=== PATIENT | male | born 1985 | race Caucasian/White ===

== ENCOUNTER 2021-04-17 08:22 | Day surgery (SDC) | payer MEDICAID ==
[~2021-04-17 08:22] MED LIST: Midazolam 1 MG/ML 2 ML SDV ONE; Propofol 200 MG/20 ML SDV ONE; fentaNYL 100 MCG/2 ML SDV ONE
[2021-04-17] MEDS ORDERED: Dextrose 5%-Lactated Ringers 1,000 ML IV SCH (09:00)
[2021-04-17] MEDS ORDERED: Glycopyrrolate 0.2 MG/ML 2 ML SDV IVPUSH ONE (09:15)
[2021-04-17] MEDS ORDERED: Propofol 200 MG/20 ML SDV ONE ×2 (10:17→10:26)
--- NOTE | 2021-04-22 12:47 | OR ---
DATE OF PROCEDURE: 04/17/2021 SURGEON: Leander Thompson MD PREOPERATIVE DIAGNOSES: 1. Probable gastroesophageal reflux disease. 2. Rectal bleeding. POSTOPERATIVE DIAGNOSES: 1. Upper endoscopy showing: a. Moderate-sized hiatal hernia with ulcerated gastroesophageal reflux disease. b. Mild antral gastritis. 2. Colonoscopy showing a sessile mass of sigmoid colon. OPERATIVE PROCEDURE: 1. Esophagogastroduodenoscopy with: a. Biopsy of esophagogastric junction for histologic evaluation. b. Biopsy of antrum for CLOtest. 2. Flexible colonoscopy with injection of submucosal Su ink adjacent to sigmoid colon mass. ANESTHESIA: IV sedation. INDICATIONS FOR PROCEDURE: This is a 36-year-old male presenting with worsening symptoms of gastroesophageal reflux disease. The patient presently has 20 mg of omeprazole daily. He also has had some episodes of rectal bleeding. This has been going on for several years rule out there being something other than hemorrhoids, the patient to undergo a flexible colonoscopy with biopsies and/or polypectomy as indicated. Potential risks of the procedure including bleeding and perforation were discussed, and the patient wishes to proceed. DETAILS OF PROCEDURE: The patient was taken to the operating room and placed in a left lateral decubitus position. IV sedation was administered after which the upper GI endoscope was passed orally through the length of the esophagus, into the stomach with retroflexion view of the fundus, thereafter through the pyloric channel and into the proximal duodenum. Findings included normal hypopharynx, larynx, upper esophageal sphincter, and esophageal body. At the EG junction, there was a moderate-sized hiatal hernia measuring around 3 cm. This was associated with some ulcerated gastroesophageal reflux disease with several linear ulcers extending upward. These were presently covered with fibrinous exudate. There was no stricturing at the esophagogastric junction. There was a loss of angulation of the esophagogastric junction related to the hiatal hernia. Within the stomach, there was some mild patchy redness within the antrum, otherwise the remainder of the stomach and duodenal exams were unremarkable. At this point, biopsy was obtained from the esophagogastric junction and sent for histologic evaluation and biopsy was obtained from the antrum and sent for CLOtest for H. pylori. Minimal bleeding from the biopsy sites was noted and the procedure then concluded. Attention was then taken to the colonoscopy. The initial digital rectal exam was performed and was unremarkable. The colonoscope was then passed into the rectum. Retroflexion did reveal some excoriated hemorrhoidal columns which may at some point been involved in some bleeding. The scope was eventually passed to the level of the cecum. The prep was quite good with only a small amount of liquid stool present. A striking finding was that of a quite large sessile mass. This was a polypoid mass which occupied between one-third and one-half of the segment of the sigmoid colon at around 25 cm from the dentate line. The scope was able to be passed around this area. The mass did appear to be fairly mobile in the area underlying musculature and this mass would either be consistent with a large adenomatous polyp of some subtype which was an area of possible in situ invasive carcinoma. Other than that, there were no additional abnormalities with the colon exam. No additional polyps or other sites of neoplasia were seen and there was no diverticular disease or colitis. At this point, it was felt that the mass would require formal resection. Given the large size, biopsies were not obtained as this would not effect the decision making as this would need to be resected with the intent to proceed with a cancer-type operation as the final histologic nature of the mass would only be fully elucidated upon its removal and examination of its entire substance. To help facilitate identification of this mass, 4 mL of Su ink was injected into the colonic submucosa adjacent to the mass and at that point no complication was noted. The scope was then withdrawn and the procedure then concluded. A lengthy discussion was held with the patient and following this. They would like to get through [place] and the plan will be to proceed with the segmental colorectal resection on May 02. From an oncologic standpoint, this amount of delay for this level of lesion would by all means not be problematic. Leander Thompson MD /[id number]
== END 2021-04-17 12:34 | disposition home or self-care (01) ==
LOC: JP.SDS 08:22
PROVIDERS: ATTEND Surgery
DX: K63.89 Other specified diseases of intestine (principal); K21.9 Gastro-esophageal reflux disease without esophagitis; K44.9 Diaphragmatic hernia without obstruction or gangrene; K29.60 Other gastritis without bleeding; K31.89 Other diseases of stomach and duodenum
CPT/HCPCS: 36415; 43239; 45381; 82378; 86850; 86900; 86901; 87081; 88305; J2250; J2704; J3010; J3490; J7121

== ENCOUNTER 2021-05-02 05:32 | Inpatient (IN) | payer MEDICAID ==
[2021-05-02] MEDS ORDERED: Dextrose 5%-Lactated Ringers 1,000 ML IV SCH ×2 (06:00→10:45)
[2021-05-02] MEDS ORDERED: Acetaminophen 500 MG Tab PO SCH (06:30)
[2021-05-02] MEDS ORDERED: Propofol 200 MG/20 ML SDV ONE (06:55)
[2021-05-02] MEDS ORDERED: Glycopyrrolate 0.2 MG/ML 5 ML MDV ONE (06:55)
[2021-05-02] MEDS ORDERED: Rocuronium 50 MG/5 ML Vial ONE (06:55)
[2021-05-02] MEDS ORDERED: fentaNYL 100 MCG/2 ML SDV ONE (06:55)
[2021-05-02] MEDS ORDERED: Succinylcholine 200 MG/10 ML MDV ONE (06:55)
[2021-05-02] MEDS ORDERED: Ondansetron 4 MG/2 ML SDV ONE (06:55)
[2021-05-02] MEDS ORDERED: Dexamethasone 4 MG/ML SDV ONE (06:55)
[2021-05-02] MEDS ORDERED: Sodium Chloride 0.9% 10 ML ONE (06:55)
[2021-05-02] MEDS ORDERED: Neostigmine Methylsulfate 1 MG/ML 5 ML Syringe ONE (06:55)
[2021-05-02] MEDS ORDERED: fentaNYL 250 MCG/5 ML SDV ONE ×2 (06:55→07:33)
[2021-05-02] MEDS ORDERED: cefOXitin 2 GM in Sodium Chloride 0.9% 50 ML IV ONE (07:00)
[2021-05-02] MEDS ORDERED: Ketamine 500 MG/5 ML MDV IV SCH (07:30)
[2021-05-02] MEDS ORDERED: Ketamine 25 MG in Sodium Chloride 0.9% 19.75 ML IV SCH (07:30)
[2021-05-02] MEDS ORDERED: Naloxone 0.4 MG/ML SDV IVPUSH PRN (08:00)
[2021-05-02] MEDS ORDERED: Meropenem 500 MG SDV IV ONE (08:40)
[2021-05-02] MEDS ORDERED: Meperidine PF 100 MG/ML Syringe IM PRN (10:41)
[2021-05-02] MEDS: fentaNYL 2,500 MCG in Sodium Chloride 0.9% 200 ML EPIDUR SCH (10:47)
[2021-05-02] MEDS ORDERED: diphenhydrAMINE 50 MG/ML SDV IVPUSH PRN (11:00)
[2021-05-02] MEDS ORDERED: hydrOXYzine HCL 100 MG/2 ML SDV IM PRN (11:00)
[2021-05-02] MEDS ORDERED: Ondansetron 4 MG/2 ML SDV IVPUSH PRN (11:00)
[2021-05-02] MEDS ORDERED: Naloxone 0.4 MG/ML SDV IV PRN (11:00)
[2021-05-02] MEDS: Dextrose 5%-Lactated Ringers 1,000 ML with Naloxone 0.4 MG IV SCH ×6 (11:16→23:48)
[2021-05-02] MEDS: Acetaminophen 500 MG Tab PO SCH ×3 (11:52→23:48)
[2021-05-02] MEDS ORDERED: Pantoprazole 40 MG Vial IVPUSH SCH (14:00)
[2021-05-02] MEDS: cefOXitin 2 GM in Sodium Chloride 0.9% 50 ML IV SCH ×2 (14:25→20:32)
[2021-05-02] MEDS: Enoxaparin 40 MG/0.4 ML Syringe SUBCUT SCH (14:25)
[2021-05-02] MEDS ORDERED: Lactated Ringers 500 ML IV ONE (15:00)
[2021-05-02] MEDS: Tamsulosin 0.4 MG Cap.ER PO SCH (20:34)
[2021-05-03] MEDS: cefOXitin 2 GM in Sodium Chloride 0.9% 50 ML IV SCH ×3 (02:34→14:17)
[2021-05-03] MEDS: fentaNYL 2,500 MCG in Sodium Chloride 0.9% 200 ML EPIDUR SCH (03:52)
[2021-05-03] MEDS: Acetaminophen 500 MG Tab PO SCH ×3 (05:47→17:13)
[2021-05-03] MEDS: Dextrose 5%-Lactated Ringers 1,000 ML with Naloxone 0.4 MG IV SCH ×6 (07:42→20:45)
--- NOTE | 2021-05-03 07:46 | PN ---
DATE OF SERVICE: 05/03/2021 SUBJECTIVE: Nav is postop day 1. He states his pain is controlled. He has an epidural and is taking Tylenol. Oral intake 3200. Urine output 2485 via Lopes catheter. COLIN drain put out 75 mL. He has been up walking using his incentive spirometer, has no questions or concerns. OBJECTIVE: GENERAL: Nav is a 36-year-old male. He is alert and orientated. VITAL SIGNS: TPR 98.6, 85, 18. Blood pressure 105/67. HEENT: Negative. NECK: Supple. HEART: Regular rate and rhythm. LUNGS: Clear. ABDOMEN: Dressing dry and intact. Abdominal binder is on. EXTREMITIES: Without peripheral edema. ASSESSMENT: Exploratory laparotomy with: 1. Rectosigmoid resection with coloproctostomy. 2. Small bowel resection. 3. Repair of incarcerated umbilical hernia. 4. Mobilization of omentum into pelvis. POSTOPERATIVE DIAGNOSES: 1. Cystocele, polypoid mass, distal sigmoid colon. 2. Segment of small bowel adherent to sigmoid colon. 3. Incarcerated umbilical hernia. 4. Date of procedure 05/02/2021. Surgeon: Leander Thompson MD. PLAN: 1. Schedule and have consent signed for delayed primary closure, IV local sedation with TAP block on 05/04/2021 at 0715 hours, n.p.o. after midnight. Surgeon: Leander Thompson MD. 2. Decrease IV to 100 mL per hour. 3. Regular diet. 4. Ibuprofen 600 mg q.6 hours p.o. scheduled. 5. Dulcolax 2 tabs b.i.d. p.o. scheduled. 6. Colace 100 mg p.o. b.i.d. scheduled. 7. Continue use of incentive spirometer and we will evaluate p.r.n. or in a.m. Sara Short PA-C /[id number]
[2021-05-03] MEDS: Bisacodyl 5 MG Tab PO SCH ×2 (09:09→20:35)
[2021-05-03] MEDS: Ibuprofen 600 MG Tab PO SCH ×3 (09:09→20:35)
[2021-05-03] MEDS: Docusate Sodium 100 MG Cap PO SCH ×2 (09:10→20:35)
[2021-05-03] MEDS: Citalopram 20 MG Tab PO SCH (09:10)
--- NOTE | 2021-05-03 12:46 | OR ---
DATE OF PROCEDURE: 05/02/2021 SURGEON: Leander Thompson MD PREOPERATIVE DIAGNOSIS: Sessile polypoid mass, distal sigmoid colon. POSTOPERATIVE DIAGNOSES: 1. Sessile polypoid mass, distal sigmoid colon. 2. Segment of small bowel adherent to sigmoid colon. 3. Incarcerated umbilical hernia. OPERATIVE PROCEDURES: 1. Exploratory laparotomy with: a. Rectosigmoid resection with coloproctostomy (57762). b. Small bowel resection (70422). c. Repair of incarcerated umbilical hernia (30592). d. Mobilization of omentum into pelvis (40873). ANESTHESIA: General plus epidural. SERVICE LINE COORDINATOR: Sara Short PA-C INDICATIONS FOR PROCEDURE: This is a 36-year-old male presenting with some ongoing rectal bleeding, and upon colonoscopy was noted to have a sessile mass within the distal sigmoid colon. The plan is to proceed with a rectosigmoid resection. This may either be malignant or premalignant, a standard cancer operation would be appropriate. Potential risks of procedure including bleeding, infection, leaks from GI tract, anastomosis potentially requiring a temporary colostomy as well as possibility of cardiopulmonary, septic, or hemorrhagic complications including were discussed, and that there is a possibility this is more advanced than suspected initially was gone over how he may need additional treatment postoperatively beyond surgery, and wishes to proceed. DETAILS OF PROCEDURE: The patient was taken to the operating room and after epidural catheter was placed and general endotracheal anesthetic was induced, the patient was placed in a lithotomy position. Lopes catheter was inserted and the abdomen and inguinal area was then prepped and draped. A midline incision from the umbilicus down to the pubis was made and carried down through the full-thickness abdominal wall. Upon entering the peritoneal cavity, it was noted that there was a point of small bowel which was adherent to the sigmoid colon into the mass. The area of mass was identified by preoperative Su ink marking and was easily palpable as well within the distal sigmoid colon. Otherwise, there is no significant lymphadenopathy noted, and there is no other evidence of any metastatic disease within peritoneal surfaces or elsewhere. At this point, the proximal sigmoid colon was divided with the MARY stapler. Peritoneal edges of the base of the sigmoid colon, mesentery, and onto the rectum were divided on each side subsequent dissection and division of the mesentery to those area. Once we got down to roughly the mid rectum divided with MARY purple stapler and specimen delivered from the field. Off the field, mass was confirmed to be within the area of the resection with satisfactory margins. Prior to removal, the small bowel was divided more or less flush with the sigmoid colon with the MARY stapler where it was adherent to that surface. This was done with MARY melodie and the anastomosis was initially needed. This was to a point just proximal to the ileocecal valve and internal firing of the 60 mm MARY stapler followed the transverse colon closure of the common opening. Angles anastomosed and mesenteric defect were approximated with some 3- 0 Vicryl stitch anastomosis reinforced with 4 mL of fibrin sealant. Attention was taken to the colorectal anastomosis. A small opening was made and divided the sigmoid colon and anvil, 28 mm EEA stapler passed into the lumen of the divided sigmoid colon, which was then re-stapled and the anvil was then brought out through the most dependent portion of the of the EEA staple line. Transrectally, the main body of EEA stapler was brought up to divide the rectum fired thus creating the coloproctostomy. Upon removal of the stapler, double donuts of mucosa were noted within it. The test was accomplished with a colonoscopy advancing up to the level of anastomosis which was seen to be intact with blood supply on each side antibiotic-containing saline solution. No bubbles or other signs of leaks were noted. The colorectal anastomosis was reinforced on its anterior 2/3 with 3-0 Vicryl seromuscular stitch and then with 6 mL of fibrin sealant. During the course of the resection, the patient was noted to have incarcerated umbilical hernia whose contents were excised with a small opening made in the umbilical skin. This was densely adherent to the hernia sac and that overhang was then closed with some 3-0 Vicryl skin stitch. Abdomen was then irrigated with antibiotic-containing saline solution once again. A Emanuel- Bolivar drain was taken out through the left lower abdomen, placed down into the pelvis adjacent to the coloproctostomy. Finally, the omentum was mobilized down into the pelvis we put a suture there, small bowel should the patient at any require any postoperative radiation treatment. The peritoneum from the linea semilunaris downward was then closed with #2 Vicryl stitch followed by edges of fascia being closed with #2 Vicryl stitch. The uppermost stitch closed the umbilical hernia, and the skin and subcutaneous tissue were then packed open for planned delayed primary closure in 48 hours to limit the chances of wound infection. There were no evident complications. The patient tolerated the procedure well. Physician cafeteria assistant, Sara Short, played an essential role in assisting in this case, helping to position the patient, retract structures as needed, as well as suturing and cutting sutures when indicated. Her presence improved patient's safety and decreased operative time. Leander Thompson MD /[id number]
[2021-05-03] MEDS: Enoxaparin 40 MG/0.4 ML Syringe SUBCUT SCH (14:17)
[2021-05-03] MEDS: Pantoprazole 40 MG Tab.CR PO SCH (17:13)
[2021-05-03] MEDS: Tamsulosin 0.4 MG Cap.ER PO SCH (20:36)
[2021-05-04] MEDS: fentaNYL 2,500 MCG in Sodium Chloride 0.9% 200 ML EPIDUR SCH ×2 (00:01→17:21)
[2021-05-04] MEDS: Acetaminophen 500 MG Tab PO SCH ×4 (00:03→17:20)
[2021-05-04] MEDS: Ibuprofen 600 MG Tab PO SCH ×4 (04:19→20:15)
[2021-05-04] MEDS: Dextrose 5%-Lactated Ringers 1,000 ML with Naloxone 0.4 MG IV SCH ×6 (05:25→14:21)
[2021-05-04] MEDS ORDERED: Meropenem 500 MG SDV ONE (06:39)
[2021-05-04] MEDS ORDERED: Lidocaine 1% with EPINEPHrine 1:100,000 50 ML MDV ONE (06:39)
[2021-05-04] MEDS ORDERED: Bupivacaine 0.5% 50 ML MDV ONE (06:39)
[2021-05-04] MEDS ORDERED: fentaNYL 100 MCG/2 ML SDV ONE (07:04)
[2021-05-04] MEDS ORDERED: Midazolam 1 MG/ML 2 ML SDV ONE (07:04)
[2021-05-04] MEDS ORDERED: Propofol 200 MG/20 ML SDV ONE ×2 (07:09→07:32)
[2021-05-04] MEDS: Citalopram 20 MG Tab PO SCH (09:24)
[2021-05-04] MEDS: Bisacodyl 5 MG Tab PO SCH ×2 (09:24→20:15)
[2021-05-04] MEDS: Docusate Sodium 100 MG Cap PO SCH ×2 (09:24→20:15)
--- NOTE | 2021-05-04 09:34 | OR ---
DATE OF PROCEDURE: 05/04/2021 SURGEON: Leander Thompson MD PREOPERATIVE DIAGNOSIS: Open abdominal incision. POSTOPERATIVE DIAGNOSIS: Open abdominal incision. OPERATIVE PROCEDURE: Delayed primary closure of open abdominal incision. ANESTHESIA: Local plus IV sedation. INDICATION FOR PROCEDURE: This is a 36-year-old status post a low anterior resection for a sessile polypoid tumor 2 days ago. At the time of the procedure, his skin and subcutaneous tissue were felt to be at high risk for wound infection and were therefore packed open for delayed primary closure today. Potential risks of the procedure including bleeding and infection were reviewed, and the patient wishes to proceed. DETAILS OF PROCEDURE: The patient was taken to the operating room and placed in a semi- sitting position. The operative dressing was taken down. He received some IV sedation. The wound appeared to be clean. Wound was then prepped and draped, anesthetized with 1% lidocaine mixed with Marcaine, and irrigated with meropenem-containing saline solution. This incision was closed with 2 layers of 3-0 and 4-0 Vicryl stitch deep and melodie for the skin. Bilateral transverse abdominis plane blocks were placed using ultrasound guidance. The patient tolerated the procedure well, was taken to the recovery room in satisfactory condition. Leander Thompson MD /[id number]
--- NOTE | 2021-05-04 11:54 | PN ---
DATE OF SERVICE: 05/04/2021 The patient has been afebrile with stable vital signs. Pain control was fairly good with epidural. He is passing some flatus. No bowel movement as of yet. I think we will leave the epidural and Lopes catheter in today. He will undergo delayed closure of abdominal incision and resume later a diet along with bowel stimulation. We will likely get the purulent Lopes catheter out tomorrow. Leander Thompson MD /[id number]
[2021-05-04] MEDS: Pantoprazole 40 MG Tab.CR PO SCH (16:20)
[2021-05-04] MEDS ORDERED: Dextrose 5%-Lactated Ringers 1,000 ML IV SCH (18:00)
[2021-05-04] MEDS: traMADol 50 MG Tab PO PRN (18:22)
[2021-05-04] MEDS: Tamsulosin 0.4 MG Cap.ER PO SCH (20:15)
[2021-05-05] MEDS: Acetaminophen 500 MG Tab PO SCH ×5 (00:17→23:12)
[2021-05-05] MEDS: traMADol 50 MG Tab PO PRN ×4 (00:20→23:12)
[2021-05-05] MEDS: Ibuprofen 600 MG Tab PO SCH ×5 (04:05→20:28)
[2021-05-05] MEDS ORDERED: Sodium Chloride 0.9% 10 ML Syringe IV PRN (07:39)
[2021-05-05] MEDS: Docusate Sodium 100 MG Cap PO SCH ×2 (09:53→20:28)
[2021-05-05] MEDS: Citalopram 20 MG Tab PO SCH (09:53)
[2021-05-05] MEDS ORDERED: Tranexamic Acid 1,000 MG in Sodium Chloride 0.9% 50 ML IV ONE ×2 (14:00→17:00)
[2021-05-05] MEDS: Pantoprazole 40 MG Tab.CR PO SCH (17:05)
[2021-05-05] MEDS: Tamsulosin 0.4 MG Cap.ER PO SCH (20:28)
[2021-05-06] MEDS: Ibuprofen 600 MG Tab PO SCH ×2 (05:01→08:50)
[2021-05-06] MEDS: Acetaminophen 500 MG Tab PO SCH ×2 (05:44→07:35)
[2021-05-06] MEDS: Docusate Sodium 100 MG Cap PO SCH (08:50)
[2021-05-06] MEDS: Citalopram 20 MG Tab PO SCH (08:50)
--- NOTE | 2021-05-06 09:27 | PN ---
DATE OF SERVICE: 05/05/2021 The patient has been afebrile with stable vital signs. He did have some maroon stools overnight. He has been hemodynamically stable with adequate blood pressure, heart rates in the 72 to 80 range over the last several hours with the patient not being on any beta- blockers or other medications that might slow the heart rate artificially, and clinically, he feels fairly good. I think this is probably some old blood filled in the colon above the anastomosis and now is coming out rectally with the resolution of the ileus over the last half of the day. The patient could considerably bleed from the small bowel anastomosis, but I think that would result in a significant amount of more hemodynamic most of the colon with blood. Hemoglobin on admission was 15.7; that was after the colonoscopy prep is 12.5 this morning. As a caution, we will keep him overnight. We will hold on any Lovenox. The Lopes catheter would be coming out. The epidural catheter came out last night, and he is tolerating the Tylenol, ibuprofen, and tramadol for pain. He will likely be ready for discharge home as soon as there is no significant bleeding. We will also discontinue the Dulcolax oral tablets function and saline lock the IV. Leander Thompson MD /[id number]
--- NOTE | 2021-05-08 11:03 | DISCH ---
FINAL DIAGNOSES: 1. Sessile polypoid mass, distal sigmoid colon. 2. Segment of small bowel adherent to sigmoid colon. 3. Incarcerated umbilical hernia. SECONDARY DIAGNOSES: 1. Gastroesophageal reflux disease. 2. Anxiety disorder. 3. History of substance abuse, resolved. OPERATIVE PROCEDURES: On 05/02, exploratory laparotomy with: 1. Rectosigmoid resection with coloproctostomy. 2. Small-bowel resection. 3. Repair of incarcerated umbilical hernia. 4. Mobilization of omentum into pelvis to limit recurrent adhesion formation between the pelvic wall and surrounding viscera. On 05/04, delayed primary closure of abdominal incision. SUMMARY: This is a 36-year-old male presenting with some rectal bleeding. Recently, he underwent a colonoscopy which showed a fairly large sessile mass in the distal sigmoid colon. He also underwent an upper endoscopy. At that time, he was found to have gastroesophageal reflux disease. After preoperative discussion, he wished to proceed with resection, and on 05/02, the patient underwent the above resection. He did have a loop of small bowel that was adherent to the sigmoid colon. This was probably not pathologic other than a scar in that area as the mass itself appeared to be fairly early. It was quite mobile at the underlying musculature malignancy. There was no lymphadenopathy. Final pathology is pending. Postoperatively, the patient had probably some bleeding from his anastomosis. This was not evident until the last couple of days before discharge. His hemoglobin preoperatively was around 15 and dropped down to 12 but at this point he was hemodynamically stable, the bleeding likely had occurred right after surgery in remainder of the colon until his ileus resolved. He did not require any transfusions. At this point, he will be discharged home with a regular diet. He is on ibuprofen, Tylenol, and tramadol p.r.n. for pain. The only prescription will be tramadol 50 mg p.o. q.6 hours p.r.n. pain, #12, and he will otherwise continue his usual medications. Follow up with Dr. Thompson at [facility] on 05/16/2021. /[id number]
== END 2021-05-06 09:30 | disposition home or self-care (01) | DRG 330 ==
LOC: JP.SDS 05:32 → JP.MS 05:32 → EDSTATUS 07:15 → JP.ICU 09:15
PROVIDERS: ADMIT Surgery; ATTEND Surgery
PROC: 0D1N0ZP Bypass Sigmoid Colon to Rectum, Open Approach (ICD-10-PCS; principal; 2021-05-02)
PROC: 0DB80ZZ Excision of Small Intestine, Open Approach (ICD-10-PCS; 2021-05-02)
PROC: 0WQF0ZZ Repair Abdominal Wall, Open Approach (ICD-10-PCS; 2021-05-02)
DX: D12.5 Benign neoplasm of sigmoid colon (principal); K42.0 Umbilical hernia with obstruction, without gangrene; K63.89 Other specified diseases of intestine; K21.9 Gastro-esophageal reflux disease without esophagitis; F41.9 Anxiety disorder, unspecified
CPT/HCPCS: 36415; 80053; 83735; 84100; 85025; 85027; 86850; 86900; 86901; 86920; 86922; 90686; A9270-GY; C9113; J0171; J0330; J0694; J1100; J1200; J1650; J2185; J2250; J2310; J2405; J2704; J2710; J2795; J3010; J3490; J7050; J7120; J7121

== ENCOUNTER 2023-01-09 07:15 | Emergency (ER) | payer MEDICAID | END 2023-01-09 08:27 | disposition home or self-care (01) | LOC: JP.ED 07:15 | DX: T81.31XA Disruption of external operation (surgical) wound, not elsewhere classified, initial encounter (principal); T81.49XA Infection following a procedure, other surgical site, initial encounter; E66.01 Morbid (severe) obesity due to excess calories; K21.9 Gastro-esophageal reflux disease without esophagitis; Z68.42 Body mass index [BMI] 45.0-49.9, adult; Z79.899 Other long term (current) drug therapy; Z91.030 Bee allergy status; Z98.890 Other specified postprocedural states | CPT/HCPCS: 99283 ==

== ENCOUNTER 2023-04-11 17:33 | Emergency (ER) | payer MEDICAID ==
[2023-04-11] MEDS ORDERED: Ketorolac 30 MG/ML SDV IM ONE (19:11)
[2023-04-11] MEDS ORDERED: hydrOXYzine HCL 100 MG/2 ML SDV IM ONE (19:12)
[2023-04-11] MEDS ORDERED: Lidocaine 1% 10 ML MDV INJECT ONE (20:09)
== END 2023-04-11 20:43 | disposition home or self-care (01) ==
LOC: JP.ED 17:33
DX: M62.830 Muscle spasm of back (principal); K21.9 Gastro-esophageal reflux disease without esophagitis; F17.210 Nicotine dependence, cigarettes, uncomplicated; E66.9 Obesity, unspecified; Z79.899 Other long term (current) drug therapy; Z91.030 Bee allergy status; Z68.42 Body mass index [BMI] 45.0-49.9, adult
CPT/HCPCS: 96372; 99283; J1885; J3410

== ENCOUNTER 2023-09-11 22:23 | Emergency (ER) | payer MEDICAID ==
[2023-09-11] MEDS: Albuterol/Ipratropium 3.0-0.5 MG/3 ML Neb Soln NEB ONE (23:22)
== END 2023-09-11 23:30 | disposition home or self-care (01) ==
LOC: JP.ED 22:23
DX: J45.901 Unspecified asthma with (acute) exacerbation (principal); K21.9 Gastro-esophageal reflux disease without esophagitis; F17.210 Nicotine dependence, cigarettes, uncomplicated; Z91.030 Bee allergy status; Z79.899 Other long term (current) drug therapy; Z79.51 Long term (current) use of inhaled steroids
CPT/HCPCS: 94640; 99284; J7620

== ENCOUNTER 2023-12-09 12:21 | Emergency (ER) | payer MEDICAID ==
[2023-12-09 14:12] LABS: BASOPHILS ABSOLUTE AUTO 0.05 K/uL (0.00-0.10); BASOPHILS PERCENT AUTO 0.6 % (0.1-1.3); EOSINOPHILS ABSOLUTE AUTO 0.18 K/uL (0.00-0.40); HEMATOCRIT 41.9 % (38.4-49.7); HEMOGLOBIN 15.3 g/dL (12.9-16.9); IMMATURE GRAN ABSOLUTE AUTO 0.04 K/uL (0.00-0.23); IMMATURE GRAN PERCENT AUTO 0.4 % (0.0-0.7); LYMPHOCYTES ABSOLUTE AUTO 2.35 K/uL (0.8-3.3); LYMPHOCYTES PERCENT AUTO 26.3 % (11.4-47.7); MEAN CORPUSCULAR HEMOGLOBIN 30.8 pg (31.6-35.5); MEAN CORPUSCULAR HGB CONC 36.5 g/dL (31.6-35.5); MEAN CORPUSCULAR VOLUME 84.5 fL (81.4-99.0); MONOCYTES ABSOLUTE AUTO 0.44 K/uL (0.20-0.90); MONOCYTES PERCENT AUTO 4.9 % (3.3-12.6); NEUTROPHILS ABSOLUTE AUTO 5.87 K/uL (1.0-7.6); NEUTROPHILS PERCENT AUTO 65.8 % (40.0-78.1); PLATELET COUNT,PLT 209 K/uL (130-375); RED BLOOD CELL COUNT 4.96 M/uL (4.14-5.76); WHITE BLOOD CELL COUNT,WBC 8.9 K/uL (3.2-11.0)
[2023-12-09 14:16] LABS: BASE EXCESS VENOUS 2.1 mm/L; BICARBONATE,VENOUS 26.6 mmol/L; CARBOXYHEMOGLOBIN 3.2 % (0.0-1.6); METHEMOGLOBIN 0.9 %; O2 SATURATION VENOUS 63.1; OXYHEMOGLOBIN 60.5 %; PCO2 VENOUS 42.9 mm/Hg; PH,VENOUS 7.409 (7.350-7.450); PO2 VENOUS 40.2 mm/Hg; TOTAL HEMOGLOBIN 16.1 g/dL (13.5-18.0)
[2023-12-09 14:47] LABS: A/G RATIO 0.8 (1.2-2.2); ALANINE AMINOTRANSFERASE,ALT 38 U/L (12-78); ALBUMIN 3.3 g/dL (3.4-5.0); ALKALINE PHOSPHATASE 104 U/L (46-116); ASPARTATE AMNIOTRANSFERASE,AST 18 U/L (15-37); BILIRUBIN TOTAL 0.5 mg/dL (0.2-1.0); BLOOD UREA NITROGEN,BUN 10 mg/dL (7-18); CALCIUM 8.5 mg/dL (8.5-10.1); CARBON DIOXIDE,CO2 27 mmol/L (21-32); CHLORIDE,CL 102 mmol/L (100-108); EST CRCL DRUG DOSING (CG) 120.88 mL/min; ESTIMATED GFR 99 mL/min (>60); GLUCOSE RANDOM 130 mg/dL (74-106); POTASSIUM,K 4.4 mmol/L (3.6-5.2); PRO B-TYPE NATRIUR PEPT,BNPPRO 10 pg/mL (5-125); PROTEIN TOTAL,TP 7.5 g/dL (6.4-8.2); SODIUM,NA 139 mmol/L (140-148); TROPONIN I HIGH SENSITIVITY 4.1 pg/mL (<=60.3)
[2023-12-09 14:48] LABS: ANION GAP 14.4 mmol/L (5.0-14.0)
[2023-12-09 14:55] LABS: APPEARANCE,URINE CLEAR (CLEAR); BILIRUBIN,URINE NEGATIVE (NEGATIVE); COLOR,URINE YELLOW (YELLOW); GLUCOSE,URINE NEGATIVE (NEGATIVE); KETONES,URINE NEGATIVE (NEGATIVE); LEUKOCYTE ESTERASE,URINE NEGATIVE (NEGATIVE); NITRITE,URINE NEGATIVE (NEGATIVE); OCCULT BLOOD,URINE TRACE-INTACT (NEGATIVE); PROTEIN,URINE NEGATIVE (NEGATIVE)
[2023-12-09 14:57] LABS: AMPHETAMINES SCREEN, URINE NEGATIVE (NEGATIVE); BARBITURATE SCREEN,URINE NEGATIVE (NEGATIVE); BENZODIAZEPINES SCREEN,URINE NEGATIVE (NEGATIVE); METHADONE SCREEN, URINE NEGATIVE (NEGATIVE); METHAMPHETAMINES SCREEN, URINE NEGATIVE (NEGATIVE); OXYCODONE SCREEN,URINE NEGATIVE (NEGATIVE); PROPOXYPHENE SCREEN,URINE NEGATIVE (NEGATIVE); THC SCREEN,URINE 50 NG/ML NEGATIVE (NEGATIVE)
[2023-12-09 15:06] LABS: AMORPHOUS SEDIMENT,URINE RARE; BACTERIA,URINE NOT SEEN; EPITHELIAL CELLS,URINE OCCASIONAL; MUCUS,URINE NOT SEEN; RBC,URINE NOT SEEN (0-5); WBC,URINE NOT SEEN (0-5)
[2023-12-09 15:30] LABS: CORONAVIRUS COVID-19 NAA NEGATIVE (NEGATIVE); INFLUENZA A NAA NEGATIVE (NEGATIVE); INFLUENZA B NAA NEGATIVE (NEGATIVE); RESPIRATORY SYNCYTIAL VIR NAA NEGATIVE (NEGATIVE)
== END 2023-12-09 16:11 | disposition home or self-care (01) ==
LOC: JP.ED 12:21
DX: R07.89 Other chest pain (principal); J45.909 Unspecified asthma, uncomplicated; K21.9 Gastro-esophageal reflux disease without esophagitis; E66.9 Obesity, unspecified; Z79.899 Other long term (current) drug therapy; Z91.030 Bee allergy status; Z68.43 Body mass index [BMI] 50.0-59.9, adult
CPT/HCPCS: 0241U; 36415; 71045; 80053; 80305; 81001; 82803; 83605; 83880; 84145; 84484; 85025; 85379; 93005; 93010; 99283; 99285

== ENCOUNTER 2024-06-06 09:54 | Emergency (ER) | payer MEDICAID ==
[2024-06-06] MEDS: methylPREDNISolone Sodium Succinate 125 MG/2 ML SDV IM ONE (11:20)
[2024-06-06] MEDS: Albuterol/Ipratropium 3.0-0.5 MG/3 ML Neb Soln NEB ONE (11:21)
[2024-06-06 11:46] LABS: CORONAVIRUS COVID-19 NAA NEGATIVE (NEGATIVE); INFLUENZA A NAA NEGATIVE (NEGATIVE); INFLUENZA B NAA NEGATIVE (NEGATIVE); RESPIRATORY SYNCYTIAL VIR NAA POSITIVE (NEGATIVE)
== END 2024-06-06 13:45 | disposition home or self-care (01) ==
LOC: JP.ED 09:54
DX: J44.1 Chronic obstructive pulmonary disease with (acute) exacerbation (principal); B97.4 Respiratory syncytial virus as the cause of diseases classified elsewhere; I10 Essential (primary) hypertension; F17.210 Nicotine dependence, cigarettes, uncomplicated; Z91.030 Bee allergy status; Z79.899 Other long term (current) drug therapy; Z86.16 Personal history of COVID-19
CPT/HCPCS: 0241U; 71045; 94640; 96372; 99285; J2919; J7620